=== PATIENT | female | born 1965 | race Hispanic/Latino ===

== ENCOUNTER 2016-04-29 17:31 | Observation (INO) | payer MEDICAID ==
[2016-04-29 17:32] VITALS: BMI 20.7
[2016-04-29 19:58] LABS: BASO % 0.5 % (0.0-2.0); EOS # 0.1 K/uL (0.0-0.7); EOS % 1.8 % (0.0-4.0); HEMATOCRIT 38.5 % (34.0-47.0); LYMPH # 2.5 K/uL (1.0-4.3); LYMPH % 29.8 % (20.0-40.0); MEAN CORPUSCULAR HEMOGLOBIN 31.2 pg (27.0-31.0); MEAN PLATELET VOLUME 8.8 fL (7.2-11.7); MONO % 11.9 % (0.0-10.0); WHITE BLOOD COUNT 8.2 K/uL (4.8-10.8)
[2016-04-29 19:59] LABS: MEAN CELL VOLUME 91.8 fL (81.0-99.0)
[2016-04-29 20:05] LABS: CHLORIDE 97 mmol/L (98-107); SODIUM 138 mmol/L (132-148)
[2016-04-29 20:06] LABS: POTASSIUM 3.8 mmol/L (3.6-5.2)
[2016-04-29 20:07] LABS: GFR AFRICAN-AMERICAN > 60
[2016-04-29 20:08] LABS: ALB/GLOB RATIO 1.2 (1.0-2.1); ALKALINE PHOSPHATASE 53 U/L (38-126); ALT/SGPT 18 U/L (9-52); AST/SGOT 20 U/L (14-36); BILIRUBIN,TOTAL 0.3 mg/dL (0.2-1.3); BLOOD UREA NITROGEN 13 mg/dL (7-17); CARBON DIOXIDE 27 mmol/L (22-30); GLUCOSE,RANDOM 103 mg/dL (65-105); TOTAL PROTEIN 7.8 g/dL (6.3-8.3)
[2016-04-29 20:09] LABS: ALCOHOL SERUM < 10 mg/dl (0-10); RBC URINE 3 /hpf (0-3); TRANSITIONAL EPITHIAL < 1 /hpf (0-3); URINE BACTERIA RARE (<OCC); URINE BILIRUBIN NEGATIVE (NEGATIVE); URINE BLOOD NEGATIVE (NEGATIVE); URINE CALCIUM OXALATE CRYSTALS FEW /hpf (<OCC); URINE COLOR Yellow (YELLOW); URINE GLUCOSE (UA) NORMAL (Normal); URINE KETONE TRACE mg/dL (NEGATIVE); URINE LEUKOCYTE ESTERASE NEG Leu/uL (Negative); URINE PROTEIN NEGATIVE (NEGATIVE); URINE UROBILINOGEN NORMAL mg/dL (0.2-1.0); WBC URINE 3 /hpf (0-5)
--- NOTE | 2016-04-29 20:53 | C.PDOC ---
History Of Present Illness <Kyara Montano - Last Filed: 04/29/16 22:23> <Jose F Davis - Last Filed: 04/30/16 06:22> <Blayne Boucher - Last Filed: 04/30/16 10:57> 50 yr old female w/PMHx of psych ds, brought in via BLS, presents to the ER for a psych evaluation. As per family patient was having agitated behaviour for past few weeks, and throwing objects at other family members. for past few days " hard to control her behaviour". At present time, Patient appears slightly agitated, oriented to place and person, pt denies any active spychiatric complaints, denies suicidal or homocidal ideation, denies psych medication use. Patient complaints to Left foot skin peeling", otherwise denies any other active complaints. Pt repeatedly asking for RX and discharge. (Kyara Montano) History Per: Patient, Family History/Exam Limitations: no limitations Onset/Duration Of Symptoms: Unknown <Kyara Montano - Last Filed: 04/29/16 22:23> <Jose F Davis - Last Filed: 04/30/16 06:22> <Blanye Boucher - Last Filed: 04/30/16 10:57> Time Seen by Provider: 04/29/16 18:16 Chief Complaint (Nursing): Medical Clearance Past Medical History Reviewed: Historical Data, Nursing Documentation, Vital Signs - Medical History PMH: Anxiety, Bipolar Disorder, Depression, Schizophrenia Family History: States: No Known Family Hx - Social History Hx Tobacco Use: No Hx Alcohol Use: No Hx Substance Use: No - Immunization History Hx Tetanus Toxoid Vaccination: Yes (10/08/2014) Hx Influenza Vaccination: No Hx Pneumococcal Vaccination: No <Kyara Montano - Last Filed: 04/29/16 22:23> Vital Signs: Last Vital Signs Temp 97.9 F 04/30/16 07:52 Pulse 70 04/30/16 07:52 Resp 18 04/30/16 07:52 BP 109/70 04/30/16 07:52 Pulse Ox 97 04/30/16 07:52 - [facility] Procedures TETANUS TOXOID ADMINIST (10/08/14) Review Of Systems Except As Marked, All Systems Reviewed And Found Negative. Constitutional: Negative for: Fever Gastrointestinal: Negative for: Nausea, Vomiting Skin: Positive for: Lesions Neurological: Negative for: Weakness, Numbness, Headache Psych: Positive for: Psychosis <Kyara Montano - Last Filed: 04/29/16 22:23> Physical Exam - Physical Exam Appears: Non-toxic, No Acute Distress, Unkempt Skin: Warm, Dry, No Rash Head: Atraumatic, Normacephalic Eye(s): bilateral: Normal Inspection Nose: Normal, No Discharge Oral Mucosa: Moist, No Drooling Tongue: Normal Appearing Lips: Normal Appearing Throat: Normal Neck: Normal, Normal ROM, Supple Chest: Symmetrical, No Tenderness Cardiovascular: Rhythm Regular, No Murmur Respiratory: Normal Breath Sounds, No Rales, No Rhonchi, No Stridor, No Wheezing Gastrointestinal/Abdominal: Normal Exam, Soft, No Tenderness, No Distention, No Guarding, No Rebound Back: Normal Inspection, No CVA Tenderness Extremity: Normal ROM, No Pedal Edema, No Deformity, No Swelling Extremity: Bilateral: Atraumatic Neurological/Psych: Oriented x3, Normal Speech, Other (At the time of evaluation , patient appears appropriate but is disoriented to the time. ) <Kyara Montano - Last Filed: 04/29/16 22:23> ED Course And Treatment - Laboratory Results Result Diagrams: 04/29/16 19:48 04/29/16 19:48 Lab Interpretation: Normal O2 Sat by Pulse Oximetry: 96 (RA) <Kyara Montano - Last Filed: 04/29/16 22:23> - Laboratory Results Result Diagrams: 04/29/16 19:48 04/29/16 19:48 <Jose F Davis - Last Filed: 04/30/16 06:22> - Laboratory Results Result Diagrams: 04/29/16 19:48 04/29/16 19:48 Lab Interpretation: Normal (tox/etoh neg.) Urine POC: Negative Reevaluation Time: 10:56 Reassessment Condition: Improved (d/w Crisis- ok for d/c) <Blayne Boucher - Last Filed: 04/30/16 10:57> Medical Decision Making <yKara Montano - Last Filed: 04/29/16 22:23> <Jose F Davis - Last Filed: 04/30/16 06:22> <Blayne Boucher - Last Filed: 04/30/16 10:57> Medical Decision Making: PLAN: * Alcohol Serum * Drug Screen * CBC * HCG Urine * Urinalysis * * Diagnostics review and appears without acute abnormalities. PATIENT IS MEDICALLY CLEARED FOR PES EVALUATION AND FURTHER PSYCHIATRIC EVALUATION/TREATMENT/TRANSFER NEED. After [place] evaluation[place] [facility] [place]. Case discussed with and sign out. (Kyara Montano) received pt as signout [place] [facility] [place] cleared by screener, however request [facility] eval from [facility]. 530: recieved update from crisis. [facility] willl arrive at 9am. 700: pt endorsed to day shift. pending eval by [facility]. (Jose F Davis) agitation, meds and follow-up arranged. (Blayne Boucher) ED OBSERVATION <Kyara Montano - Last Filed: 04/29/16 22:23> Date of observation admission: 04/30/16 Time of observation admission: 12:00 <Jose F Davis - Last Filed: 04/30/16 06:22> <Blayne Boucher - Last Filed: 04/30/16 10:57> - Observation admission statement Patient is being placed in observation because:: [place] [facility] [place]Jose F Davis) - Goals of Observation Goals of observation are:: [place] [facility] [place] (Jose F Davis) Disposition <Kyara Montano - Last Filed: 04/29/16 22:23> <Jose F Davis - Last Filed: 04/30/16 06:22> Doctor Will See Patient In The: Office Counseled Patient/Family Regarding: Studies Performed, Diagnosis - Disposition Disposition Time: 10:57 <Blayne Boucher - Last Filed: 04/30/16 10:57> - Disposition Disposition: HOME/ ROUTINE Condition: GOOD - Clinical Impression Clinical Impression: Anxiety - PA / SERVICE UNIT OPERATOR / Resident Statement MD/DO has reviewed & agrees with the documentation as recorded. - Scribe Statement The provider has reviewed the documentation as recorded by the Scribe <Kyara Montano - Last Filed: 04/29/16 22:23> <Jose F Davis - Last Filed: 04/30/16 06:22> <Blayne Boucher - Last Filed: 04/30/16 10:57> - Scribe Statement Yumi Izquierdo All medical record entries made by the Scribe were at my direction and personally dictated by me. I have reviewed the chart and agree that the record accurately reflects my personal performance of the history, physical exam, medical decision making, and the department course for this patient. I have also personally directed, reviewed, and agree with the discharge instructions and disposition. (Kyara Montano)
[2016-04-29 22:57] VITALS: RESP 18
[2016-04-30 11:03] VITALS: BP 113/70; PULSE 80; TEMP 97.8; O2SAT 98
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
== END 2016-04-30 10:57 | disposition home or self-care (01) ==
LOC: C.ER 17:31 → C.9OBSV 04-30 01:00
PROVIDERS: ADMIT Student in an Organized Health Care Education/Training Program; ATTEND Student in an Organized Health Care Education/Training Program
DX: F31.62 Bipolar disorder, current episode mixed, moderate (principal); F41.9 Anxiety disorder, unspecified; F70 Mild intellectual disabilities
CPT/HCPCS: 36415; 80053; 80320; 80324; 80345; 80346; 80349; 80353; 80358; 80361; 81001; 83992; 84703; 85025; G0378

== ENCOUNTER 2016-06-19 02:47 | Emergency (ER) | payer MEDICAID ==
[2016-06-19 02:48] VITALS: BMI 20.7
--- NOTE | 2016-06-19 03:54 | C.PDOC ---
History Of Present Illness 50 y/o female complaining of scratch to the lateral aspect of the left foot, due to her shoes and is asking for the area to be cleaned and dressed. Patient also requests a sandwich and ice cream. Time Seen by Provider: 06/19/16 03:27 Chief Complaint (Nursing): Medical Clearance History Per: Patient History/Exam Limitations: no limitations Onset/Duration Of Symptoms: Unknown Current Symptoms Are (Timing): Still Present Severity: Mild Recent travel outside of the [place]: No Additional History Per: Patient Past Medical History Vital Signs: Last Vital Signs Temp 98 F 06/19/16 04:27 Pulse 82 06/19/16 04:27 Resp 18 06/19/16 04:27 BP 130/74 06/19/16 04:27 Pulse Ox 99 06/19/16 04:27 - Medical History PMH: Anxiety, Bipolar Disorder, Depression, Schizophrenia Denies: Diabetes, Hepatitis, HIV, HTN, Chronic Kidney Disease, Seizures, Sexually Transmitted Disease - [facility] Procedures TETANUS TOXOID ADMINIST (10/08/14) Family History: States: Unknown Family Hx - Social History Hx Tobacco Use: No Hx Alcohol Use: No Hx Substance Use: No - Immunization History Hx Tetanus Toxoid Vaccination: Yes (10/08/2014) Hx Influenza Vaccination: No Hx Pneumococcal Vaccination: No Review Of Systems Except As Marked, All Systems Reviewed And Found Negative. Skin: Positive for: Lesions Physical Exam - Physical Exam Appears: Well, No Acute Distress, Other (dissheveled) Skin: Normal Color, Warm, Dry, Other (Small amount of erythema and early pressure wound on the left lateral foot near the lateral malleolous. No open wounds or drainage. ) Neck: Normal Chest: Symmetrical, No Deformity Extremity: Normal ROM ED Course And Treatment O2 Sat by Pulse Oximetry: 98 (RA) Pulse Ox Interpretation: Normal Progress Note: Area cleaned with betadyne, and bacitracin was applied. Patient is medically stable for discharge. Follow up instructions given. Disposition Counseled Patient/Family Regarding: Diagnosis, Need For Followup - Disposition Disposition: HOME/ ROUTINE Disposition Time: 03:53 Condition: STABLE Additional Instructions: Please follow up with PMD Instructions: How to Prevent Pressure Ulcers (ED) - Clinical Impression Clinical Impression: Medical assessment, Pressure ulcer of foot, stage 1 - Scribe Statement The provider has reviewed the documentation as recorded by the Scribe Radha Sanz
[2016-06-19 04:27] VITALS: BP 130/74; PULSE 82; RESP 18; TEMP 98
[2016-06-19 05:12] VITALS: O2SAT 98
== END 2016-06-19 04:34 | disposition home or self-care (01) ==
LOC: C.ER 02:47
DX: L89.891 Pressure ulcer of other site, stage 1 (principal)

== ENCOUNTER 2016-07-02 19:39 | Emergency (ER) | payer MEDICAID ==
[2016-07-02 19:39] VITALS: BMI 20.7
[2016-07-02 19:56] VITALS: BP 106/73; PULSE 96; RESP 16; TEMP 98.7; O2SAT 98
[2016-07-02] MEDS ORDERED: Bacitracin 500 Units/gm Oint Foilpak UD ONE (20:02)
--- NOTE | 2016-07-02 20:11 | C.PDOC ---
History Of Present Illness Patient is a 50 year old female who presents to the ER with a complaint of a right leg wound that occurred today. Patient states she started feeling itchy today and scratched herself which caused the wound. Patient denies trauma, pain , discharge, calf tender or SOB. PT deines any itching anywhere else and no rash. Time Seen by Provider: 07/02/16 20:06 Chief Complaint (Nursing): Abnormal Skin Integrity History Per: Patient History/Exam Limitations: no limitations Onset/Duration Of Symptoms: Hrs Current Symptoms Are (Timing): Still Present Location Of Injury: Right: Leg Quality Of Symptoms: Itching, Other (Wound) Recent travel outside of the [place]: No Past Medical History Reviewed: Historical Data, Nursing Documentation, Vital Signs Vital Signs: Last Vital Signs Temp 98.7 F 07/02/16 19:55 Pulse 96 H 07/02/16 19:55 Resp 16 07/02/16 19:55 BP 106/73 07/02/16 19:55 Pulse Ox 98 07/02/16 20:44 - Medical History PMH: Anxiety, Bipolar Disorder, Depression, Schizophrenia Surgical History: No Surg Hx - [facility] Procedures TETANUS TOXOID ADMINIST (10/08/14) Family History: States: Unknown Family Hx - Social History Hx Tobacco Use: No Hx Alcohol Use: No Hx Substance Use: No - Immunization History Hx Tetanus Toxoid Vaccination: Yes (10/08/2014) Hx Influenza Vaccination: No Hx Pneumococcal Vaccination: No Review Of Systems Respiratory: Negative for: Shortness of Breath Musculoskeletal: Positive for: Other (Right leg wound). Negative for: Leg Pain (Or wound discharge) Physical Exam - Physical Exam Appears: Non-toxic, Unkempt Skin: Warm, Dry, No Rash Head: Atraumatic, Normacephalic Eye(s): bilateral: Normal Inspection, EOMI Nose: Normal Oral Mucosa: Moist Teeth: No Normal Dentition (poor dentition) Neck: Normal, Normal ROM, Supple Chest: Symmetrical, No Tenderness Cardiovascular: Rhythm Regular Respiratory: Normal Breath Sounds, No Accessory Muscle Use, Other (Speaking in complete sentences) Extremity: Normal ROM, No Tenderness, No Pedal Edema, No Calf Tenderness, Capillary Refill (<2 sec), No Swelling, Other (2 superficial abrasions 1cm and 3cm to the anterior right leg with mild erythema surrounding (<0.25 cm) .) Pulses: Left Dorsalis Pedis: Normal, Right Dorsalis Pedis: Normal Neurological/Psych: Oriented x3, Normal Speech, Normal Motor, Normal Sensation, Other (No focal deficits) Gait: Steady ED Course And Treatment O2 Sat by Pulse Oximetry: 98 (Room air) Pulse Ox Interpretation: Normal Progress Note: Wounds were irrigated, cleansed and dressed by nurse and reviewed by myself. Patient instructed to follow up with PMD in 2-3 days for a wound check. Disposition - Disposition Disposition: HOME/ ROUTINE Disposition Time: 20:08 Condition: STABLE Additional Instructions: Do not scratch the area. Follow up with your doctor in 2 days for wound check . Prescriptions: Bacitracin OINT 1 applic TP BID #1 tube Cephalexin [cephalexin] 500 mg PO BID #14 cap Instructions: Abrasion (ED) - Clinical Impression Clinical Impression: Abrasion of leg - Scribe Statement The provider has reviewed the documentation as recorded by the Scribe Golden Gonsales All medical record entries made by the Scribguzman were at my direction and personally dictated by me. I have reviewed the chart and agree that the record accurately reflects my personal performance of the history, physical exam, medical decision making, and the department course for this patient. I have also personally directed, reviewed, and agree with the discharge instructions and disposition.
== END 2016-07-02 20:28 | disposition home or self-care (01) ==
LOC: C.ER 19:39
DX: S80.811A Abrasion, right lower leg, initial encounter (principal); X58.XXXA Exposure to other specified factors, initial encounter

== ENCOUNTER 2016-07-28 15:43 | Emergency (ER) | payer MEDICAID ==
[2016-07-28 15:43] VITALS: BMI 20.7
[2016-07-28 16:10] VITALS: BP 126/87; PULSE 80; RESP 18; TEMP 97.5; O2SAT 100
--- NOTE | 2016-07-28 16:57 | C.PDOC ---
History Of Present Illness 51 y/o female, whose PMHx includes mental disorders, presents to the ED for evaluation of sunburning to b/l forearms which began yesterday. Patient has had multiple presentations for mild complaints and with sunburn-related complaints in the past. She denies itching, swelling or discharge. Time Seen by Provider: 07/28/16 16:49 Chief Complaint (Nursing): Abnormal Skin Integrity History Per: Patient History/Exam Limitations: no limitations Onset/Duration Of Symptoms: Hrs Current Symptoms Are (Timing): Still Present Location Of Injury: Right: Forearm, Left: Forearm Quality Of Symptoms: Painful. denies: Itching, Swollen, Draining Additional History Per: Patient Past Medical History Reviewed: Historical Data, Nursing Documentation, Vital Signs Vital Signs: Last Vital Signs Temp 97.5 F L 07/28/16 16:09 Pulse 80 07/28/16 16:09 Resp 18 07/28/16 16:09 BP 126/87 07/28/16 16:09 Pulse Ox 100 07/28/16 16:57 - Medical History PMH: Anxiety, Bipolar Disorder, Depression, Schizophrenia Denies: Diabetes, Hepatitis, HIV, HTN, Chronic Kidney Disease, Seizures, Sexually Transmitted Disease Surgical History: No Surg Hx - [facility] Procedures TETANUS TOXOID ADMINIST (10/08/14) Family History: States: Unknown Family Hx - Social History Hx Tobacco Use: No Hx Alcohol Use: No Hx Substance Use: No - Immunization History Hx Tetanus Toxoid Vaccination: Yes (10/08/2014) Hx Influenza Vaccination: No Hx Pneumococcal Vaccination: No Review Of Systems Except As Marked, All Systems Reviewed And Found Negative. Skin: Positive for: Other (+sunburning to b/l forearms ) Physical Exam - Physical Exam Appears: Non-toxic, No Acute Distress, Other (mentally retarded ) Skin: Warm, Dry, Other (+mild sunburn to b/l forearms ) Head: Atraumatic, Normacephalic Eye(s): bilateral: Normal Inspection Oral Mucosa: Moist Neck: Supple Extremity: Normal ROM, No Tenderness, Capillary Refill (less than 2 seconds ), No Deformity, No Swelling Neurological/Psych: Normal Speech, Normal Cognition, Normal Motor, Normal Sensation Gait: Steady ED Course And Treatment O2 Sat by Pulse Oximetry: 100 (on RA) Pulse Ox Interpretation: Normal Progress Note: Pt received Motrin PO. Medical Decision Making Medical Decision Making: mild resolving sunburn b/l forearms, educated for suntan lotion Disposition Doctor Will See Patient In The: Office Counseled Patient/Family Regarding: Studies Performed, Diagnosis - Disposition Referrals: [facility] [Outside] Disposition: HOME/ ROUTINE Disposition Time: 16:57 Condition: GOOD Additional Instructions: Please apply suntan lotion to your sun-exposed areas 2 hours before sun exposure SPF > 15, please Follow-up in our Clinic as needed. Instructions: Sunburn (ED) - Clinical Impression Clinical Impression: Sunburn - Scribe Statement The provider has reviewed the documentation as recorded by the Scribe (Perla Contreras) Provider Attestation: All medical record entries made by the Scribe were at my direction and personally dictated by me. I have reviewed the chart and agree that the record accurately reflects my personal performance of the history, physical exam, medical decision making, and the department course for this patient. I have also personally directed, reviewed, and agree with the discharge instructions and disposition.
== END 2016-07-28 17:05 | disposition home or self-care (01) ==
LOC: C.ER 15:43
DX: L55.9 Sunburn, unspecified (principal)

== ENCOUNTER 2016-08-03 20:01 | Emergency (ER) | payer MEDICAID ==
[2016-08-03 20:01] VITALS: BMI 20.7
[2016-08-03 20:10] VITALS: BP 110/70; PULSE 80; RESP 16; TEMP 98; O2SAT 99
[2016-08-03] MEDS ORDERED: Bacitracin Ointment 30 GM TUBE TOP STA (20:14)
--- NOTE | 2016-08-03 20:18 | C.PDOC ---
History Of Present Illness 51 yo female BIBA for evaluation of B/l forearm redness developed today " after was on sun". Pt denies fever, chills, headache, dizziness, CP, SOB, dyspnea, denies weakness, sensory or vascular deficits to B/l UEs, denies open wounds or any other active complaints. Ambulate to Ed for evaluation, not in any apparent distress. Time Seen by Provider: 08/03/16 20:14 Chief Complaint (Nursing): Abnormal Skin Integrity History Per: Patient Past Medical History Reviewed: Historical Data, Nursing Documentation, Vital Signs Vital Signs: Last Vital Signs Temp 98.0 F 08/03/16 20:08 Pulse 80 08/03/16 20:08 Resp 16 08/03/16 20:08 BP 110/70 08/03/16 20:08 Pulse Ox 99 08/03/16 20:08 - Medical History PMH: Anxiety, Bipolar Disorder, Depression, Schizophrenia Denies: Diabetes, Hepatitis, HIV, HTN, Chronic Kidney Disease, Seizures, Sexually Transmitted Disease - [facility] Procedures TETANUS TOXOID ADMINIST (10/08/14) Family History: States: Unknown Family Hx - Social History Hx Tobacco Use: No Hx Alcohol Use: No Hx Substance Use: No - Immunization History Hx Tetanus Toxoid Vaccination: Yes (10/08/2014) Hx Influenza Vaccination: No Hx Pneumococcal Vaccination: No Review Of Systems Except As Marked, All Systems Reviewed And Found Negative. Constitutional: Negative for: Fever, Chills Eyes: Negative for: Vision Change ENT: Negative for: Throat Pain Cardiovascular: Negative for: Chest Pain Respiratory: Negative for: Cough, Shortness of Breath, Wheezing Skin: Positive for: Rash Neurological: Negative for: Weakness, Numbness, Altered Mental Status, Headache , Dizziness Physical Exam - Physical Exam Appears: Well, Non-toxic, No Acute Distress Skin: Normal Color, Warm, Rash (mild superficial erythema noted to dorsal aspect B/l forearms. NO open wound, no discharges. no cellulitis.) Neck: Supple Respiratory: No Decreased Breath Sounds, No Accessory Muscle Use, No Stridor, No Wheezing Extremity: Normal ROM, No Tenderness, Capillary Refill (less than 2sec to B/L UEs), No Deformity, No Swelling Neurological/Psych: Oriented x3, Normal Speech, Normal Motor, Normal Sensation, Normal Reflexes ED Course And Treatment O2 Sat by Pulse Oximetry: 99 Pulse Ox Interpretation: Normal Progress Note: On re-evaluation, pt is afebrile, hemodynamicaly stable. Non- toxic. Ambulatory in Ed with stable. PulseOx 99% RA Neck:Supple, (-) JVD. ENT: no acute findings. Lungs: CTA B/L, BS equal B/L. B/L UEs: FAROM, no neurovascular deficits. Skin: exma c/w sunburn. Pt was advised on course of ds. ref. to f/u with PMD in 2-3 days for re-eval . return to ED if any worsening or new changes. Disposition Counseled Patient/Family Regarding: Diagnosis, Need For Followup, Rx Given - Disposition Referrals: Shaik Moore MD [Staff Provider] - Disposition: HOME/ ROUTINE Disposition Time: 20:14 Condition: STABLE Additional Instructions: Follow up with PMD in 2 days for re-evaluation. return to Ed if any worsening or new changes. Instructions: Sunburn (ED) - Clinical Impression Clinical Impression: Sunburn
[2016-08-03] MEDS ORDERED: Bacitracin 500 Units/gm Oint Foilpak UD ONE (20:23)
== END 2016-08-03 20:29 | disposition home or self-care (01) ==
LOC: C.ER 20:01
DX: L55.9 Sunburn, unspecified (principal)

== ENCOUNTER 2016-08-14 13:51 | Emergency (ER) | payer MEDICAID ==
[2016-08-14 13:52] VITALS: BMI 20.7
[2016-08-14 14:14] VITALS: BP 136/87; PULSE 65; RESP 16; TEMP 97.5; O2SAT 97
--- NOTE | 2016-08-14 14:41 | C.PDOC ---
History Of Present Illness Pt is requesting "pills to calm me down". Time Seen by Provider: 08/14/16 14:25 Chief Complaint (Nursing): Anxiety History Per: Patient Onset/Duration Of Symptoms: Unknown Current Symptoms Are (Timing): Still Present Suicide/Self Injury Attempted (Context): None Modifying Factor(s): None Severity: Mild Associated Symptoms: Anxiety. denies: Suicidal Thoughts, Suicidal Plan Additional History Per: Prior Records Past Medical History Reviewed: Historical Data, Nursing Documentation, Vital Signs Vital Signs: Last Vital Signs Temp 97.5 F L 08/14/16 14:12 Pulse 65 08/14/16 14:12 Resp 16 08/14/16 14:12 BP 136/87 08/14/16 14:12 Pulse Ox 97 08/14/16 14:12 - Medical History PMH: Anxiety, Bipolar Disorder, Depression, Schizophrenia Surgical History: No Surg Hx - [facility] Procedures TETANUS TOXOID ADMINIST (10/08/14) Family History: States: Unknown Family Hx - Social History Hx Tobacco Use: No Hx Alcohol Use: No Hx Substance Use: No - Immunization History Hx Tetanus Toxoid Vaccination: Yes (10/08/2014) Hx Influenza Vaccination: No Hx Pneumococcal Vaccination: No Review Of Systems Except As Marked, All Systems Reviewed And Found Negative. Constitutional: Negative for: Fever, Weakness Cardiovascular: Negative for: Chest Pain Respiratory: Negative for: Shortness of Breath Gastrointestinal: Negative for: Vomiting, Abdominal Pain Musculoskeletal: Negative for: Neck Pain Neurological: Negative for: Weakness, Numbness, Seizures, Altered Mental Status Psych: Negative for: Psychosis Physical Exam - Physical Exam Appears: Non-toxic, No Acute Distress Skin: Normal Color, Warm, Dry Head: Atraumatic Eye(s): bilateral: PERRL Neck: Normal ROM, Supple Cardiovascular: Rhythm Regular Respiratory: Normal Breath Sounds, No Accessory Muscle Use Gastrointestinal/Abdominal: Soft, No Tenderness Extremity: Normal ROM, No Deformity Neurological/Psych: Oriented x3, Normal Motor, Normal Sensation ED Course And Treatment O2 Sat by Pulse Oximetry: 97 Pulse Ox Interpretation: Normal Disposition Counseled Patient/Family Regarding: Diagnosis, Need For Followup, Rx Given - Disposition Referrals: Shaik Moore MD [Staff Provider] - Disposition: HOME/ ROUTINE Disposition Time: 14:40 Condition: STABLE Additional Instructions: Follow up with your doctor within 1 week. Return to the ER if you develop suicidal or homicidal thoughts, hallucinations, worsening of symptoms or if you have any other concerns. Prescriptions: Hydroxyzine HCl 25 mg PO Q4 PRN #20 tablet PRN Reason: Anxiety Instructions: Anxiety (ED) - Clinical Impression Clinical Impression: Anxiety
== END 2016-08-14 14:49 | disposition home or self-care (01) ==
LOC: C.ER 13:51
DX: F41.9 Anxiety disorder, unspecified (principal)

== ENCOUNTER 2016-08-31 13:12 | Emergency (ER) | payer MEDICAID ==
[2016-08-31 13:12] VITALS: BMI 20.7
[2016-08-31 13:27] VITALS: BP 115/79; PULSE 85; RESP 16; TEMP 98.1; O2SAT 100
--- NOTE | 2016-08-31 14:21 | C.PDOC ---
History Of Present Illness 51 year old female presents to the ED with complaints of left knee pain and swelling after tripping and falling on the side walk a "couple of weeks ago." Patient denies difficult walking, recent trauma, or other complaints at this time. Time Seen by Provider: 08/31/16 13:42 Chief Complaint (Nursing): Lower Extremity Problem/Injury History Per: Patient History/Exam Limitations: no limitations Onset/Duration Of Symptoms: Days (approximately 2 weeks ago ) Current Symptoms Are (Timing): Still Present - Knee Description Of Injury: Fell Past Medical History Reviewed: Historical Data, Nursing Documentation, Vital Signs Vital Signs: Last Vital Signs Temp 98.1 F 08/31/16 14:39 Pulse 85 08/31/16 14:39 Resp 16 08/31/16 14:39 BP 115/79 08/31/16 14:39 Pulse Ox 100 08/31/16 15:21 - Medical History PMH: Anxiety, Bipolar Disorder, Depression, Schizophrenia - [facility] Procedures TETANUS TOXOID ADMINIST (10/08/14) Family History: States: Unknown Family Hx - Social History Hx Tobacco Use: No Hx Alcohol Use: No Hx Substance Use: No - Immunization History Hx Tetanus Toxoid Vaccination: Yes (10/08/2014) Hx Influenza Vaccination: No Hx Pneumococcal Vaccination: No Review Of Systems Constitutional: Negative for: Fever, Chills Cardiovascular: Negative for: Chest Pain, Palpitations Respiratory: Negative for: Cough, Shortness of Breath Musculoskeletal: Positive for: Leg Pain (left knee pain and swelling) Physical Exam - Physical Exam Appears: Non-toxic, No Acute Distress Skin: Warm, Dry Head: Atraumatic Eye(s): bilateral: Normal Inspection, PERRL, EOMI Oral Mucosa: Moist Neck: Supple Chest: Symmetrical, No Deformity Cardiovascular: Rhythm Regular Respiratory: Normal Breath Sounds, No Rhonchi, No Wheezing Extremity: Normal ROM, No Tenderness, No Calf Tenderness, Capillary Refill ( good capillary refill, less than two seconds ), No Deformity, No Swelling Neurological/Psych: Oriented x3, Normal Speech, Normal Cognition, Normal Cranial Nerves, Normal Motor, Normal Sensation Gait: Steady ED Course And Treatment O2 Sat by Pulse Oximetry: 100 (room air ) - Other Rad Knee XR X-Ray: Interpreted by Me, Viewed By Me Interpretation: No fx or dislocation Progress Note: Patient was given acetamenophin. Freedom wrap applied by RN. On reassessment, patient is resting comfortably, and is in no acute distress. Patient was instructed to follow up with physician/clinic in 1-2 days for further evaluation. Disposition - Disposition Referrals: Dorian Waite III, MD [Staff Provider] - Disposition: HOME/ ROUTINE Disposition Time: 14:20 Condition: STABLE Additional Instructions: Rest, ice and elevate the area. Follow up with primary medical doctor in 1-3 days without fail for further evaluation. Take medications as prescribed. Return to the emergency department at any time if symptoms persist or worsen. Prescriptions: Acetaminophen [Tylenol 325mg tab] 650 mg PO Q4 PRN #20 tab PRN Reason: Pain, Mild (1-3) Instructions: Knee Pain (ED) - Clinical Impression Clinical Impression: Knee pain - Scribe Statement The provider has reviewed the documentation as recorded by the Scribe Alina Tripp All medical record entries made by the Scribe were at my direction and personally dictated by me. I have reviewed the chart and agree that the record accurately reflects my personal performance of the history, physical exam, medical decision making, and the department course for this patient. I have also personally directed, reviewed, and agree with the discharge instructions and disposition.
--- NOTE | 2016-08-31 15:47 | RAD ---
PROCEDURE: Left Knee Radiographs. HISTORY: Pain. COMPARISON: No prior studies available for comparison however correlation made with plain film radiographs of the right knee 06/17/2015 FINDINGS: BONES: No evidence of acute displaced fracture nor dislocation. The osseous structures appear intact. Slight spurring of the medial tibial spine. Very tiny early posterior patellar osteophyte formation. Small suprapatellar joint effusions also present. JOINTS: As above JOINT EFFUSION: As above OTHER FINDINGS: None. IMPRESSION: No evidence of acute displaced fracture nor dislocation. Small suprapatellar joint effusion. If symptoms persist or occult fracture suspected clinically recommend repeat radiographs in 5-10 days as most fractures should become radiographically evident in this timeframe.
== END 2016-08-31 14:39 | disposition home or self-care (01) ==
LOC: C.ER 13:12
DX: M25.562 Pain in left knee (principal)

== ENCOUNTER 2016-09-21 12:41 | Emergency (ER) | payer MEDICAID ==
[2016-09-21 12:41] VITALS: BMI 20.7
[2016-09-21 13:09] VITALS: BP 135/85; PULSE 83; RESP 20; TEMP 98.3; O2SAT 100
[2016-09-21] MEDS ORDERED: Bacitracin 500 Units/gm Oint Foilpak UD ONE (13:26)
--- NOTE | 2016-09-21 13:59 | C.PDOC ---
History Of Present Illness 51 year old female who presents to the ER requesting a refill of her anxiety medication that she describes as a "little green pill". Patient also is requesting an evaluation of an irritated, erythematous area to her left leg. Denies SI, HI, or other physical complaints. Time Seen by Provider: 09/21/16 13:13 Chief Complaint (Nursing): Med Refill History Per: Patient History/Exam Limitations: no limitations Onset/Duration Of Symptoms: Days Current Symptoms Are (Timing): Still Present Recent travel outside of the [place]: No Past Medical History Reviewed: Historical Data, Nursing Documentation, Vital Signs Vital Signs: Last Vital Signs Temp 98.3 F 09/21/16 13:06 Pulse 83 09/21/16 13:06 Resp 20 09/21/16 13:06 BP 135/85 09/21/16 13:06 Pulse Ox 100 09/21/16 14:20 - Medical History PMH: Anxiety, Bipolar Disorder, Depression, Schizophrenia Surgical History: No Surg Hx - [facility] Procedures TETANUS TOXOID ADMINIST (10/08/14) Family History: States: Unknown Family Hx - Social History Hx Tobacco Use: No Hx Alcohol Use: No Hx Substance Use: No - Immunization History Hx Tetanus Toxoid Vaccination: Yes (10/08/2014) Hx Influenza Vaccination: No Hx Pneumococcal Vaccination: No Review Of Systems Constitutional: Negative for: Fever, Chills Skin: Positive for: Other (Erythematous area) Psych: Positive for: Anxiety Physical Exam - Physical Exam Appears: Non-toxic, No Acute Distress Skin: Warm, Dry, Other (Quarter size erythematous abraded area to distal left leg) Head: Atraumatic, Normacephalic Oral Mucosa: Moist Extremity: Normal ROM (x4), No Tenderness Neurological/Psych: Oriented x3, Normal Speech, Normal Cognition ED Course And Treatment O2 Sat by Pulse Oximetry: 100 (Room air) Pulse Ox Interpretation: Normal Medical Decision Making Medical Decision Making: Plan: * Atarax * Crisis eval 211 pm pt given some information by crisis team for alf and outpatient counseling. pt to be given rx for hydroxyzine and advised that Dr Moore or therapist/psychiatrist needs to write next rx for anti anxiety medications. pt to be referred to wound care clinic. Disposition Counseled Patient/Family Regarding: Diagnosis, Need For Followup, Rx Given - Disposition Referrals: Shaik Moore MD [Staff Provider] - [facility] [Outside] Disposition: HOME/ ROUTINE Disposition Time: 14:14 Condition: STABLE Additional Instructions: Keep wound clean and dry. Apply bacitracin to wound once a day. Follow up in wound care clinic in [place]. Follow up for therapy and counseling for your anxiety- call [phone] to make an appointment. Follow up with Dr Moore. Prescriptions: Bacitracin OINT 1 applic TP DAILY #1 tube Hydroxyzine Pamoate 25 mg PO Q8 #24 capsule Instructions: Anxiety (ED) Forms: [facility] (Wolof), General Discharge Instructions - Clinical Impression Clinical Impression: Anxiety, Skin irritation - Scribe Statement The provider has reviewed the documentation as recorded by the Scribe Golden Gonsales All medical record entries made by the Scribe were at my direction and personally dictated by me. I have reviewed the chart and agree that the record accurately reflects my personal performance of the history, physical exam, medical decision making, and the department course for this patient. I have also personally directed, reviewed, and agree with the discharge instructions and disposition.
== END 2016-09-21 14:24 | disposition home or self-care (01) ==
LOC: C.ER 12:41
DX: F41.9 Anxiety disorder, unspecified (principal); L98.8 Other specified disorders of the skin and subcutaneous tissue

== ENCOUNTER 2016-09-23 14:11 | Emergency (ER) | payer MEDICAID ==
[2016-09-23 14:11] VITALS: BMI 20.7
[2016-09-23 14:32] VITALS: BP 129/70; PULSE 88; RESP 18; TEMP 97.8; O2SAT 98
== END 2016-09-23 17:03 | disposition left against medical advice (07) ==
LOC: C.ER 14:11
DX: Z76.0 Encounter for issue of repeat prescription (principal); Z02.9 Encounter for administrative examinations, unspecified

== ENCOUNTER 2016-10-07 13:27 | Emergency (ER) | payer MEDICAID ==
[2016-10-07 13:27] VITALS: BMI 20.7
--- NOTE | 2016-10-07 14:27 | C.PDOC ---
History Of Present Illness 51 year old female, with unknown psych history, is brought to ED by police for erratic behavior. As per police, patient's neighbor had found pt tossing away garbage outside. Patient is well known to ED staff for multiple prior visits requesting "green pills". Otherwise, denies any SI, HI, auditory hallucination, or any other physical complaints at this time. Time Seen by Provider: 10/07/16 14:23 Chief Complaint (Nursing): Psychiatric Evaluation History Per: Patient History/Exam Limitations: no limitations Onset/Duration Of Symptoms: Gradual Current Symptoms Are (Timing): Still Present Suicide/Self Injury Attempted (Context): None Modifying Factor(s): None Severity: None Pain Scale Rating Of: 0 Associated Symptoms: denies: Suicidal Thoughts, Suicidal Plan Recent travel outside of the [place]: No Additional History Per: Prior Records Past Medical History Reviewed: Historical Data, Nursing Documentation, Vital Signs Vital Signs: Last Vital Signs Temp 97.9 F 10/07/16 17:15 Pulse 80 10/07/16 17:15 Resp 20 10/07/16 17:15 BP 109/57 L 10/07/16 17:15 Pulse Ox 99 10/07/16 17:15 - Medical History PMH: Anxiety, Bipolar Disorder, Depression, Schizophrenia - [facility] Procedures TETANUS TOXOID ADMINIST (10/08/14) Family History: States: Unknown Family Hx - Social History Hx Tobacco Use: No Hx Alcohol Use: No Hx Substance Use: No - Immunization History Hx Tetanus Toxoid Vaccination: Yes (10/08/2014) Hx Influenza Vaccination: No Hx Pneumococcal Vaccination: No Review Of Systems Constitutional: Negative for: Fever, Chills Cardiovascular: Negative for: Chest Pain, Palpitations Respiratory: Negative for: Shortness of Breath Gastrointestinal: Negative for: Nausea, Vomiting, Abdominal Pain Neurological: Negative for: Headache, Dizziness Psych: Negative for: Suicidal ideation Physical Exam - Physical Exam Appears: Non-toxic, No Acute Distress Skin: Normal Color, Warm, Dry Head: Atraumatic, Normacephalic Eye(s): bilateral: Normal Inspection Oral Mucosa: Moist Neck: Normal ROM, Supple Cardiovascular: Rhythm Regular, No Murmur Respiratory: Normal Breath Sounds, No Accessory Muscle Use, No Rales, No Rhonchi , No Wheezing Gastrointestinal/Abdominal: Soft, No Tenderness Extremity: Bilateral: Atraumatic, Normal ROM Neurological/Psych: Oriented x3, Other (extremely talkative, rapid speech) ED Course And Treatment - Laboratory Results Result Diagrams: 10/07/16 16:31 10/07/16 16:31 O2 Sat by Pulse Oximetry: 97 (on RA) Pulse Ox Interpretation: Normal Medical Decision Making Medical Decision Making: Blood work, UA ordered and reviewed. Patient was given Ativan. Pending crisis evaluation. 505 pm pt seen by crisis team and cleared; pt has information to make an appointment with Dr Flood/[facility] team. pt calm and cooperative now. Disposition Counseled Patient/Family Regarding: Studies Performed, Diagnosis, Need For Followup - Disposition Referrals: Wing Flood MD [Staff Provider] - Disposition: HOME/ ROUTINE Disposition Time: 17:07 Condition: STABLE Additional Instructions: Follow up with Dr Flood and with [facility] for counseling and further evaluation. Return to ER for any worsening symptoms. Instructions: Schizophrenia (ED) Forms: General Discharge Instructions, [facility] (Georgian) - Clinical Impression Clinical Impression: Schizophrenia - PA / [employer] / Resident Statement MD/DO has reviewed & agrees with the documentation as recorded. - Scribe Statement The provider has reviewed the documentation as recorded by the Scribe Lazaro Contreras All medical record entries made by the Vinicioibguzman were at my direction and personally dictated by me. I have reviewed the chart and agree that the record accurately reflects my personal performance of the history, physical exam, medical decision making, and the department course for this patient. I have also personally directed, reviewed, and agree with the discharge instructions and disposition.
[2016-10-07 15:46] LABS: RBC URINE 2 /hpf (0-3); URINE BILIRUBIN NEGATIVE (NEGATIVE); URINE BLOOD NEGATIVE (NEGATIVE); URINE COLOR Yellow (YELLOW); URINE GLUCOSE (UA) NORMAL (Normal); URINE KETONE 1+ mg/dL (NEGATIVE); URINE LEUKOCYTE ESTERASE NEG Leu/uL (Negative); URINE PROTEIN NEGATIVE (NEGATIVE); URINE UROBILINOGEN NORMAL mg/dL (0.2-1.0); WBC URINE < 1 /hpf (0-5)
[2016-10-07 16:34] LABS: BASO # 0.1 K/uL (0.0-0.2); BASO % 0.9 % (0.0-2.0); EOS % 0.3 % (0.0-4.0); HEMATOCRIT 37.3 % (34.0-47.0); LYMPH # 1.4 K/uL (1.0-4.3); LYMPH % 22.8 % (20.0-40.0); MEAN CELL VOLUME 91.8 fL (81.0-99.0); MEAN CORPUSCULAR HEMOGLOBIN 32.1 pg (27.0-31.0); MEAN PLATELET VOLUME 9.2 fL (7.2-11.7); MONO # 0.5 K/uL (0.0-0.8); MONO % 7.9 % (0.0-10.0); WHITE BLOOD COUNT 6.1 K/uL (4.8-10.8)
[2016-10-07 16:47] LABS: CHLORIDE 97 mmol/L (98-107)
[2016-10-07 16:48] LABS: POTASSIUM 3.6 mmol/L (3.6-5.2); SODIUM 137 mmol/L (132-148)
[2016-10-07 16:50] LABS: ALB/GLOB RATIO 1.2 (1.0-2.1); AST/SGOT 21 U/L (14-36); BILIRUBIN,TOTAL 0.7 mg/dL (0.2-1.3); CARBON DIOXIDE 28 mmol/L (22-30); GFR AFRICAN-AMERICAN > 60; TOTAL PROTEIN 7.8 g/dL (6.3-8.3)
[2016-10-07 16:51] LABS: ALCOHOL SERUM < 10 mg/dl (0-10); ALKALINE PHOSPHATASE 72 U/L (38-126); ALT/SGPT 21 U/L (9-52); BLOOD UREA NITROGEN 7 mg/dL (7-17); CALCIUM 9.3 mg/dl (8.6-10.4); GLUCOSE,RANDOM 110 mg/dL (65-105)
[2016-10-07 17:15] VITALS: BP 109/57; PULSE 80; RESP 20; TEMP 97.9
[2016-10-10 10:33] VITALS: O2SAT 97
== END 2016-10-07 17:25 | disposition home or self-care (01) ==
LOC: C.ER 13:27
DX: F20.9 Schizophrenia, unspecified (principal)